=== PATIENT | male | born 2005 | race Caucasian/White ===

== ENCOUNTER 2024-06-18 08:48 | Emergency (ER) | payer MEDICAID ==
[~2024-06-18] VITALS: Ht 177.8 cm; Wt 85.0 kg
[2024-06-18 08:51] VITALS: O2SAT 99
[2024-06-18 09:23] LABS: HEMOGLOBIN. 13.4 g/dL (14.0-18.0); MEAN CORPUSCULAR HEMOGLOBIN 27.8 pg (28.0-32.0); MEAN CORPUSCULAR HGB CONC 32.7 g/dL (31.0-37.0); MEAN CORPUSCULAR VOLUME 85.1 fL (80.0-94.0); MEAN PLATELET VOLUME 6.5 fl (7.4-10.4); PLATELET 312 x1000/uL (130-400); RED BLOOD CELL COUNT 4.82 mill/uL (4.7-6.1); RED CELL DISTRIBUTION WIDTH 13.9 % (11.6-14.6); WHITE BLOOD COUNT 11.4 x1000/uL (4.5-11.0)
[2024-06-18 09:29] LABS: CHLORIDE 103 mEq/L (98-107); POTASSIUM 3.9 mEq/L (3.5-5.1); SODIUM 139 mEq/L (136-145)
[2024-06-18 09:30] LABS: CARBON DIOXIDE 27 mEq/L (21-32); DIFFERENTIAL COMMENT 1
[2024-06-18 09:31] LABS: CALCIUM 9.5 mg/dL (8.7-10.4)
[2024-06-18 09:35] LABS: CREATININE 0.8 mg/dL (0.6-1.3)
[2024-06-18 09:36] LABS: GLUCOSE 127 mg/dL (70-105); UREA NITROGEN BLOOD 10 mg/dL (9-23)
[2024-06-18 09:37] LABS: ACETAMINOPHEN < 2 ug/mL (10-30)
[2024-06-18 09:46] LABS: ETHANOL BLOOD < 10 mg/dL (<10)
[2024-06-18 10:19] VITALS: BP 146/87; PULSE 101; RESP 20; TEMP 98.1
[2024-06-18 10:28] LABS: PLATELET ESTIMATE NORMAL
[2024-06-18 10:37] LABS: CLARITY URINE CLEAR (CLEAR); COLOR URINE YELLOW (YELLOW); GLUCOSE URINE NEGATIVE (NEGATIVE); KETONES URINE NEGATIVE (NEGATIVE); LEUKOCYTE ESTERASE URINE NEGATIVE (NEGATIVE); NITRITE URINE NEGATIVE (NEGATIVE); OCCULT BLOOD URINE NEGATIVE (NEGATIVE); PH URINE 7.5 (4.5-8.0); PROTEIN URINE 1+ (NEGATIVE); SPECIFIC GRAVITY URINE 1.019 (1.005-1.030); UROBILINOGEN URINE 0.2 E.U./dL (0.2-1.0)
[2024-06-18 10:54] LABS: SQUAMOUS EPITHELIAL CELL URINE RARE /lpf (RARE/1+)
[2024-06-18 10:59] LABS: BACTERIA URINE NONE SEEN; RBC URINE NONE SEEN /hpf (0-2); WBC URINE 0-2 /hpf (0-2)
[2024-06-18 12:07] LABS: *AMPHETAMINES SCREEN URINE PRESUMPTIVE POSITIVE (NEGATIVE); *BARBITURATES SCREEN URINE NEGATIVE (NEGATIVE); *BENZODIAZEPINES SCREEN URINE PRESUMPTIVE POSITIVE (NEGATIVE); *COCAINE SCREEN URINE NEGATIVE (NEGATIVE); METHADONE URINE SCREEN NEGATIVE (NEGATIVE); OPIATES URINE SCREEN NEGATIVE (NEGATIVE)
[2024-06-18 12:08] LABS: CANNABINOID URINE SCREEN NEGATIVE (NEGATIVE); ECSTASY MDMA SCREEN URINE CONF.TEST INDICATED (NEGATIVE); PHENCYCLIDINE URINE SCREEN NEGATIVE (NEGATIVE)
== END 2024-06-18 14:05 | disposition home or self-care (01) ==
LOC: ER 08:48
DX: F22 Delusional disorders (principal)
CPT/HCPCS: 36415; 80048; 80305; 80307; 80320; 80329; 81003; 85025; 99291; G0480